=== PATIENT | male | born 1980 | race Caucasian/White ===

== ENCOUNTER 2024-07-30 19:19 | Inpatient (IN) | payer MEDICAID ==
[~2024-07-30] VITALS: Ht 177.8 cm; Wt 61.2 kg
[2024-07-30 20:09] LABS: BILIRUBIN,URINE NEGATIVE (Neg); CLARITY,URINE CLEAR (Clear); COLOR,URINE YELLOW (Yellow); GLUCOSE, URINE NEGATIVE (Neg); KETONES,URINE 15 mg/dl (Neg); LEUKOCYTE ESTERASE ,URINE NEGATIVE (Neg); NITRITES, URINE NEGATIVE (Neg); OCCULT BLOOD,URINE NEGATIVE (Neg); PROTEIN,URINE NEGATIVE (Neg); UROBILINOGEN,URINE 0.2 E.U/dL (0.2-1.0)
[2024-07-30 20:11] LABS: BASOPHILS # (AUTO) 0.1 X10'3 (0-0.2); BASOPHILS % (AUTO) 0.5 % (0-1); EOSINOPHILS # (AUTO) 0.5 X10'3 (0-0.9); EOSINOPHILS % (AUTO) 4.2 % (0-6); HEMATOCRIT 47.5 % (42.0-52.0); HEMOGLOBIN 15.9 g/dl (14.0-17.9); LYMPHOCYTES # (AUTO) 1.4 X10'3 (1.1-4.8); LYMPHOCYTES % (AUTO) 12.2 % (21-51); MEAN CORPUSCULAR HEMOGLOBIN 28.5 PG (27.0-31.0); MEAN CORPUSCULAR HGB CONC 33.4 g/dL (33.0-36.5); MEAN CORPUSCULAR VOLUME 85.2 FL (78-98); MEAN PLATELET VOLUME 8.9 FL (7.4-10.4); MONOCYTES % (AUTO) 8.8 % (2-12); NEUTROPHILS # (AUTO) 8.4 X10'3 (1.8-7.7); NEUTROPHILS % (AUTO) 74.3 % (42-75); PLATELET COUNT 281 X10'3 (140-440); RED BLOOD COUNT 5.57 X10'6 (4.70-6.10); RED CELL DISTRIBUTION WIDTH 14.8 % (11.5-14.5); WHITE BLOOD COUNT 11.3 X10'3 (4.5-11.0)
[2024-07-30 20:12] LABS: UA COLLECTION TYPE CLN CATCH MIDSTREAM
[2024-07-30 20:18] LABS: ALANINE AMINOTRANSFERASE 30 U/L (12-78); ALBUMIN 3.9 G/DL (3.4-5.0); ALBUMIN/GLOBULIN RATIO 1.1 (1.1-1.5); ALKALINE PHOSPHATASE 92 IU/L (46-116); ANION GAP 6 (8-16); ASPARTATE AMINO TRANSFERASE 16 U/L (10-37); BILIRUBIN,TOTAL 0.6 MG/DL (0.1-1.0); BLOOD UREA NITROGEN 12 MG/DL (7-18); BUN/CREATININE RATIO 11.5 (10.0-20.0); CHLORIDE 104 MMOL/L (99-107); CREATININE 1.04 MG/DL (0.60-1.10); GLUCOSE 99 MG/DL (70-104); LIPASE 66 U/L (16-77); SODIUM 140 MMOL/L (135-145); TOTAL CARBON DIOXIDE 30.1 MMOL/L (24-32); TOTAL PROTEIN 7.3 G/DL (6.4-8.2); eCRCL 51 ML/MIN; eGFR 78 ML/MIN
[2024-07-30] MEDS: famotidine/PF 10 mg/ml inj IV ONE (20:59)
[2024-07-30] MEDS: pantoprazole 40 MG vial IV ONE (20:59)
[2024-07-30] MEDS: normal saline 1000ml 1,000 ML IV ONE (20:59)
[2024-07-30] MEDS: ondansetron/PF 4mg/2ml inj IV ONE (20:59)
[2024-07-30] MEDS: morphine 4 MG/ML inj SYRINge IV ONE ×2 (21:00→23:22)
[2024-07-30 21:41] LABS: URINE AMPHETAMINE SCREEN NEGATIVE (Neg); URINE BARBITUATE SCREEN NEGATIVE (Neg); URINE BENZODIAZEPINES SCREEN NEGATIVE (Neg); URINE CANNABINOID SCREEN NEGATIVE (Neg); URINE COCAINE SCREEN NEGATIVE (Neg); URINE METHADONE SCREEN NEGATIVE (Neg); URINE OPIATE SCREEN NEGATIVE (Neg); URINE PHENCYCLIDINE SCREEN NEGATIVE (Neg)
[2024-07-31] VITALS (8 sets, daily range): BP systolic 93–128; BP diastolic 52–88; PULSE 59–80; RESP 12–18; TEMP 97.7–98.7; O2SAT 96–100
[2024-07-31] MEDS ORDERED: mag hydrox/Alum hydrox/simeth 30ml oral suspension PO PRN (01:15)
[2024-07-31] MEDS ORDERED: morphine 2 MG/ML inj. syringe IV PRN ×2 (01:15)
[2024-07-31] MEDS ORDERED: acetaminophen 325mg tablet PO PRN ×2 (01:15)
[2024-07-31] MEDS ORDERED: magnesium hydroxide 30ml (MOM) UD suspension PO PRN (01:15)
[2024-07-31] MEDS ORDERED: diazepam inj 5 MG/ML inj. IV PRN (01:20)
[2024-07-31] MEDS: ondansetron/PF 4mg/2ml inj IV PRN (02:05)
[2024-07-31] MEDS: ringers solution, lacted 1,000 ML IV SCH (05:42)
[2024-07-31] MEDS: enoxaparin 40mg/0.4ml syringe SUBCUT SCH (08:00)
[2024-07-31] MEDS: docusate sod 100mg capsule PO SCH (08:40)
[2024-07-31] MEDS: pantoprazole 40 MG vial IV SCH (11:04)
[2024-07-31] MEDS ORDERED: LIDOcaine 2% Viscous 15ml cup ONE (14:18)
[2024-07-31] MEDS ORDERED: MIDAZolam 1 MG/ML 5ML VIAL ONE (14:59)
[2024-07-31] MEDS ORDERED: fentaNYL/PF 50MCG/1 ML 2ML syringe ONE (14:59)
== END 2024-07-31 18:15 | disposition left against medical advice (07) | DRG 241 ==
LOC: ER 19:20 → ED HOLD 07-31 00:25 → ORTHO 4S 07-31 01:27
PROVIDERS: ADMIT Internal Medicine Critical Care Medicine; ATTEND Internal Medicine
PROC: 0DB68ZX Excision of Stomach, Via Natural or Artificial Opening Endoscopic, Diagnostic (ICD-10-PCS; principal; 2024-07-31)
PROC: 0DB78ZX Excision of Stomach, Pylorus, Via Natural or Artificial Opening Endoscopic, Diagnostic (ICD-10-PCS; 2024-07-31)
DX: K29.70 Gastritis, unspecified, without bleeding (principal); K56.609 Unspecified intestinal obstruction, unspecified as to partial versus complete obstruction; K21.01 Gastro-esophageal reflux disease with esophagitis, with bleeding; K25.4 Chronic or unspecified gastric ulcer with hemorrhage; F17.210 Nicotine dependence, cigarettes, uncomplicated; Z53.21 Procedure and treatment not carried out due to patient leaving prior to being seen by health care provider; K44.9 Diaphragmatic hernia without obstruction or gangrene
CPT/HCPCS: 36415; 43239; 74176; 80053; 80305; 81003; 83690; 84145; 85025; 87081; 96374; 96375; 99152; 99285; A4620; G0378; J2250; J2270; J2405; J2470; J3010; J3490; J7030; J7120